=== PATIENT | male | born 1970 | race Two or more races ===

== ENCOUNTER 2020-11-14 16:06 | Inpatient (IN) | payer OTHER ==
[~2020-11-14] VITALS: Ht 188 cm; Wt 144.3 kg
[2020-11-14 18:27] VITALS: BP 122/88
[2020-11-14 21:59] VITALS: BP 127/80
[2020-11-14] MEDS ORDERED: LABETALOL 5MG/ML, 20ML IVPush PRN (22:00)
[2020-11-14] MEDS ORDERED: ACETAMINOPHEN 325 MG TABLET PO PRN (22:00)
[2020-11-14] MEDS ORDERED: ONDANSETRON 2MG/ML, 2ML IVPush PRN (22:00)
[2020-11-14] MEDS ORDERED: morphine SULFATE 10 MG/ML, 1ML IV PRN (22:00)
[2020-11-14] MEDS ORDERED: HEPARIN 5,000 UNITS/ML, 1ML IV ONE (22:30)
[2020-11-14] MEDS: PLEASE ENTER HEIGHT AND WEIGHT MC SCH (22:51)
[2020-11-14] MEDS: FUROSEMIDE 20 MG/2 ML IV SCH (23:28)
[2020-11-14] MEDS: DIAZEPAM 5 MG TABLET PO PRN (23:28)
[2020-11-14] MEDS: HEPARIN 25,000 UNITS/250ML PMX 250 ML IV PRN (23:49)
[2020-11-15 04:28] VITALS: BP 103/70
[2020-11-15] MEDS: PLEASE ENTER HEIGHT AND WEIGHT MC SCH ×2 (06:07→14:00)
[2020-11-15 06:10] LABS: BASOPHILS % (AUTO) 1 % (0-1); EOSINOPHILS % (AUTO) 2 % (1-7); LYMPHOCYTES % (AUTO) 24 % (22-44); MD NO; MEAN CORPUSCULAR HEMOGLOBIN 29.5 pg (27.5-34.5); MEAN CORPUSCULAR HGB CONC 33.6 g/dL (33.2-36.2); MEAN PLATELET VOLUME 7.5 fL (7.4-10.4); MONOCYTES % (AUTO) 8 % (2-9); NEUTROPHILS % (AUTO) 65 % (42-75); PLATELET COUNT 264 x10^3/uL (130-400); RED BLOOD COUNT 5.68 x10^6/uL (4.38-5.82)
[2020-11-15 06:20] LABS: ALANINE AMINOTRANSFERASE 43 U/L (12-78); ALBUMIN 2.6 g/dL (3.4-5.0); ANION GAP 8 mmol/L (5-15); CALCIUM 7.9 mg/dL (8.5-10.1); CHLORIDE 103 mmol/L (98-107); CREATININE 0.81 mg/dL (0.7-1.3); INTERNATIONAL NORMALIZED RATIO 1.31 (0.93-1.1); PROTHROMBIN TIME 13.9 Seconds (9.6-11.5)
[2020-11-15] MEDS: CARVEDILOL 25 MG TABLET PO SCH ×2 (06:22→17:35)
[2020-11-15 06:23] LABS: ALKALINE PHOSPHATASE 77 U/L (45-117); BILIRUBIN,TOTAL 0.7 mg/dL (0.2-1.0); TOTAL PROTEIN 6.1 g/dL (6.4-8.2)
[2020-11-15 06:38] VITALS: BP 100/66
[2020-11-15] MEDS: HEPARIN 5,000 UNITS/ML, 1ML IV PRN ×3 (06:51→22:01)
[2020-11-15] MEDS: INSULIN LISPRO 100 UNITS/ML, PEN SQ-INSULIN SCH ×4 (07:00→21:40)
[2020-11-15] MEDS: DIAZEPAM 5 MG TABLET PO PRN ×3 (08:20→21:36)
[2020-11-15] MEDS: FUROSEMIDE 20 MG/2 ML IV SCH ×2 (08:20→17:34)
[2020-11-15] MEDS: DIGOXIN 0.25 MG TABLET PO SCH (08:20)
[2020-11-15] MEDS: POTASSIUM CHLORIDE 20 MEQ TAB.ER.PRT PO SCH (08:20)
[2020-11-15] MEDS: SENNA/DOCUSATE TABLET PO SCH (08:28)
[2020-11-15] MEDS ORDERED: NITROGLYCERIN 0.4 MG BOTTLE (25 TABS) SL PRN (08:30)
[2020-11-15] MEDS ORDERED: ACETAMINOPHEN 325 MG TABLET PO PRN (08:30)
[2020-11-15] MEDS ORDERED: LISINOPRIL 5 MG TABLET PO SCH (09:00)
[2020-11-15 12:43] VITALS: BP 111/77
[2020-11-15] MEDS ORDERED: INSULIN LISPRO 100 UNITS/ML, PEN SQ-INSULIN SCH (16:00)
[2020-11-15 17:39] VITALS: BP 128/80
[2020-11-15 18:30] VITALS: BP 114/73
[2020-11-15] MEDS: HEPARIN 25,000 UNITS/250ML PMX 250 ML IV PRN (18:54)
[2020-11-16] VITALS (7 sets, daily range): BP systolic 93–120; BP diastolic 68–78
[2020-11-16] MEDS: DIAZEPAM 5 MG TABLET PO PRN ×3 (04:57→20:32)
[2020-11-16] MEDS: CARVEDILOL 25 MG TABLET PO SCH ×2 (06:54→18:30)
[2020-11-16] MEDS: INSULIN LISPRO 100 UNITS/ML, PEN SQ-INSULIN SCH ×4 (07:39→20:37)
[2020-11-16] MEDS: FUROSEMIDE 20 MG/2 ML IV SCH ×2 (08:04→16:48)
[2020-11-16] MEDS: POTASSIUM CHLORIDE 20 MEQ TAB.ER.PRT PO SCH (08:05)
[2020-11-16] MEDS: SENNA/DOCUSATE TABLET PO SCH (08:05)
[2020-11-16] MEDS: DIGOXIN 0.25 MG TABLET PO SCH (08:05)
[2020-11-16] MEDS ORDERED: SENNA/DOCUSATE TABLET PO PRN (08:30)
[2020-11-16] MEDS: HEPARIN 25,000 UNITS/250ML PMX 250 ML IV PRN (09:55)
[2020-11-16] MEDS ORDERED: PHARMACY INSTRUCTION MC ONE (14:00)
[2020-11-16 14:24] LABS: BASOPHILS % (AUTO) 1 % (0-1); EOSINOPHILS % (AUTO) 2 % (1-7); LYMPHOCYTES % (AUTO) 24 % (22-44); MEAN CORPUSCULAR HEMOGLOBIN 29.4 pg (27.5-34.5); MEAN CORPUSCULAR HGB CONC 33.1 g/dL (33.2-36.2); MEAN PLATELET VOLUME 7.5 fL (7.4-10.4); MONOCYTES % (AUTO) 8 % (2-9); NEUTROPHILS % (AUTO) 65 % (42-75); PLATELET COUNT 317 x10^3/uL (130-400); RED BLOOD COUNT 5.62 x10^6/uL (4.38-5.82); RED CELL DISTRIBUTION WIDTH 15.9 % (9.4-14.8)
[2020-11-16 14:25] LABS: MD NO
[2020-11-16 14:31] LABS: ALANINE AMINOTRANSFERASE 48 U/L (12-78); ALBUMIN 2.9 g/dL (3.4-5.0); ANION GAP 8 mmol/L (5-15); CALCIUM 8.6 mg/dL (8.5-10.1); CHLORIDE 104 mmol/L (98-107); CREATININE 1.08 mg/dL (0.7-1.3); INTERNATIONAL NORMALIZED RATIO 1.13 (0.93-1.1); PROTHROMBIN TIME 12.1 Seconds (9.6-11.5)
[2020-11-16 14:33] LABS: ALKALINE PHOSPHATASE 81 U/L (45-117); BILIRUBIN,TOTAL 0.8 mg/dL (0.2-1.0); TOTAL PROTEIN 6.7 g/dL (6.4-8.2)
[2020-11-16 18:28] LABS: MICROSCOPIC NOT IND
[2020-11-16] MEDS: SODIUM CHLORIDE FLUSH 10ML SYR IVF SCH (20:34)
[2020-11-16] MEDS ORDERED: ATORVASTATIN 40 MG TABLET PO SCH (21:00)
[2020-11-16] MEDS ORDERED: CHLORHEXIDINE 15 ML UDC MM ONE (22:00)
[2020-11-17] MEDS: HEPARIN 25,000 UNITS/250ML PMX 250 ML IV PRN (00:41)
[2020-11-17] MEDS: DIAZEPAM 5 MG TABLET PO PRN (00:44)
[2020-11-17] MEDS ORDERED: INSULIN LISPRO 100 UNITS/ML, PEN SQ-INSULIN ONE (05:00)
[2020-11-17 05:24] VITALS: BP_SYST 114; BP_SYST 116; BP_DIAS 81
[2020-11-17] MEDS: CARVEDILOL 25 MG TABLET PO SCH (05:32)
[2020-11-17] MEDS: INSULIN LISPRO 100 UNITS/ML, PEN SQ-INSULIN SCH ×4 (07:00→23:30)
[2020-11-17 07:18] VITALS: BP_SYST 94; BP_SYST 98; BP_DIAS 66; BP_DIAS 67
[2020-11-17] MEDS ORDERED: PHENYLEPHRINE 50 MG in SODIUM CHLORIDE 0.9% 245 ML IV PRN ×2 (07:30→19:30)
[2020-11-17] MEDS ORDERED: REGULAR INSULIN 100 UNITS in SODIUM CHLORIDE 0.9% 99 ML IV PRN ×2 (07:30→19:30)
[2020-11-17] MEDS ORDERED: MANNITOL PMX 20% 500 ML IVPB PRN (07:30)
[2020-11-17] MEDS ORDERED: ALBUMIN HUMAN 5% 500 ML IV PRN ×2 (07:30→19:30)
[2020-11-17] MEDS ORDERED: EPINEPHRINE 5 MG in SODIUM CHLORIDE 0.9% 245 ML IV PRN (07:30)
[2020-11-17] MEDS ORDERED: POTASSIUM CHLORIDE 80 MEQ, SODIUM BICARBONATE 8.4% 10 MEQ, MAGNESIUM SULFATE 0.5 GM, LI... IV PRN (07:30)
[2020-11-17] MEDS ORDERED: DEXMEDETOMIDINE 200 MCG in SODIUM CHLORIDE 0.9% 48 ML IV PRN (07:30)
[2020-11-17] MEDS ORDERED: VANCOMYCIN 2,000 MG in SODIUM CHLORIDE 0.9% 500 ML IVPB ONE (07:30)
[2020-11-17] MEDS ORDERED: CEFUROXIME 1.5 GM in SODIUM CHLORIDE 0.9% 50 ML IVPB ONE (07:30)
[2020-11-17 08:12] VITALS: BP_SYST 115; BP_SYST 118; BP_DIAS 75
[2020-11-17] MEDS: POTASSIUM CHLORIDE 20 MEQ TAB.ER.PRT PO SCH (08:17)
[2020-11-17] MEDS: DIGOXIN 0.25 MG TABLET PO SCH (08:17)
[2020-11-17] MEDS: FUROSEMIDE 20 MG/2 ML IV SCH (08:17)
[2020-11-17] MEDS: SODIUM CHLORIDE FLUSH 10ML SYR IVF SCH ×2 (08:18→21:00)
[2020-11-17] MEDS ORDERED: PAPAVERINE 30 MG/ML, 2ML ONE (09:47)
[2020-11-17] MEDS ORDERED: HEPARIN 1,000 UNITS/ML, 10ML ONE (09:47)
[2020-11-17] MEDS ORDERED: MAGNESIUM SULFATE PMX 2GM/50ML 50 ML ONE (10:57)
[2020-11-17] MEDS ORDERED: MIDAZOLAM 10MG/2 ML ONE (11:58)
[2020-11-17] MEDS ORDERED: FENTANYL PF 250 MCG/5ML ONE ×4 (12:01→16:56)
[2020-11-17] MEDS ORDERED: HEPARIN 1,000 UNITS/ML, 10ML IV ONE (12:43)
[2020-11-17] MEDS ORDERED: PAPAVERINE 30 MG/ML, 2ML IV ONE (12:43)
[2020-11-17] MEDS ORDERED: CALCIUM CHLORIDE 10%, 10ML SYR ONE ×2 (16:56→19:52)
[2020-11-17] MEDS ORDERED: AMIODARONE 50 MG/ML, 3ML ONE (16:56)
[2020-11-17] MEDS ORDERED: AMINOCAPROIC ACID 250 MG/ML, 20ML ONE ×3 (17:29)
[2020-11-17] MEDS ORDERED: PROTAMINE SULFATE 10 MG/ML, 25ML ONE ×3 (17:30→18:15)
[2020-11-17] MEDS ORDERED: HEPARIN 1,000 UNITS/ML, 30ML ONE ×2 (18:15→19:52)
[2020-11-17] MEDS ORDERED: ROCURONIUM 10MG/ML,5ML ONE ×3 (18:59)
[2020-11-17] MEDS ORDERED: PROPOFOL 10 MG/ML, 20ML ONE (18:59)
[2020-11-17] MEDS ORDERED: ONDANSETRON 2MG/ML, 2ML IVPush PRN (19:30)
[2020-11-17] MEDS ORDERED: DEXTROSE 4 GM TAB.CHEW PO PRN (19:30)
[2020-11-17] MEDS ORDERED: VASOPRESSIN 20 UNIT in SODIUM CHLORIDE 0.9% 99 ML IV PRN (19:30)
[2020-11-17] MEDS ORDERED: FENTANYL PF 100 MCG/2ML IV PRN (19:30)
[2020-11-17] MEDS ORDERED: GLUCAGON 1 MG IM PRN (19:30)
[2020-11-17] MEDS ORDERED: DEXTROSE 50%, 50ML SYRINGE IVPush PRN (19:30)
[2020-11-17] MEDS ORDERED: SODIUM BICARB 8.4%, 50ML SYRINGE IV PRN (19:30)
[2020-11-17] MEDS ORDERED: LACTATED RINGERS 500 ML IV PRN (19:30)
[2020-11-17] MEDS ORDERED: DEXMEDETOMIDINE 400 MCG in SODIUM CHLORIDE 0.9% 96 ML IV PRN (19:30)
[2020-11-17] MEDS ORDERED: NITROGLYCERIN/D5W PMX 250 ML IV PRN (19:30)
[2020-11-17] MEDS ORDERED: PROMETHAZINE 25 MG SUPP PR PRN (19:30)
[2020-11-17] MEDS ORDERED: SODIUM CHLORIDE 0.9% 1,000 ML IV SCH (19:30)
[2020-11-17] MEDS ORDERED: INSULIN REGULAR 100 UNITS/ML, 3ML VIAL IVPush PRN (19:30)
[2020-11-17] MEDS ORDERED: CALCIUM CHLORIDE 13.6 MEQ in SODIUM CHLORIDE 0.9% 100 ML IVPB PRN (19:30)
[2020-11-17] MEDS ORDERED: MIDAZOLAM 1 MG/ML, 2ML IV PRN (19:30)
[2020-11-17] MEDS ORDERED: HYDROmorphone 1 MG/ML, 1ML INJ IV PRN (19:30)
[2020-11-17] MEDS ORDERED: OXYcodone IR 5MG TABLET PO PRN ×2 (19:30)
[2020-11-17] MEDS ORDERED: LIDOCAINE 2%, 20ML ONE (19:52)
[2020-11-17] MEDS ORDERED: MANNITOL 0.25 GM/ML, 50ML ONE (19:53)
[2020-11-17] MEDS ORDERED: ALBUMIN HUMAN 25% 50 ML ONE ×2 (19:53→19:54)
[2020-11-17] MEDS ORDERED: SODIUM BICARBONATE 1 MEQ/ML, 50ML VIAL ONE (19:54)
[2020-11-17] MEDS: ACETAMINOPHEN 500 MG TABLET PO SCH (20:00)
[2020-11-17] MEDS: KSCALE TO 4.5 IV SCH (20:00)
[2020-11-17] MEDS: MAGNESIUM SULFATE 1 GM in SODIUM CHLORIDE 0.9% 100 ML IVPB SCH (20:11)
[2020-11-17 20:15] LABS: GLUCOSE BY BLOOD GAS ANALYZER 160 mg/dL (70-110); HEMOGLOBIN BY BLOOD GAS ANALYZ 13.8 g/dL (14.0-18.0); POTASSIUM BY BLOOD GAS ANALYZR 4.8 mmol/L (3.6-5.5)
[2020-11-17] MEDS: EPINEPHRINE 5 MG in SODIUM CHLORIDE 0.9% 245 ML IV PRN (20:42)
[2020-11-17] MEDS: SENNA/DOCUSATE TABLET PO SCH (21:00)
[2020-11-17] MEDS: ATORVASTATIN 40 MG TABLET PO SCH (21:00)
[2020-11-17] MEDS: DOCUSATE 100 MG CAPSULE PO SCH (21:00)
[2020-11-17] MEDS ORDERED: DIPHENHYDRAMINE 25 MG CAPSULE PO PRN (21:00)
[2020-11-17 21:28] LABS: INTERNATIONAL NORMALIZED RATIO 1.13 (0.93-1.1); PROTHROMBIN TIME 12.1 Seconds (9.6-11.5)
[2020-11-17] MEDS: morphine SULFATE 10 MG/ML, 1ML IVPush PRN (22:37)
[2020-11-17] MEDS: MUPIROCIN OINT 2%, 22GM NAS SCH (23:38)
[2020-11-18] MEDS: CEFUROXIME 1.5 GM in SODIUM CHLORIDE 0.9% 50 ML IVPB SCH ×2 (00:29→11:53)
[2020-11-18] MEDS: VANCOMYCIN 2,100 MG in SODIUM CHLORIDE 0.9% 500 ML IVPB SCH ×2 (00:57→11:53)
[2020-11-18] MEDS: EPINEPHRINE 5 MG in SODIUM CHLORIDE 0.9% 245 ML IV PRN ×5 (00:57→17:36)
[2020-11-18] MEDS: KSCALE TO 4.5 IV SCH ×3 (02:00→14:00)
[2020-11-18] MEDS: ACETAMINOPHEN 500 MG TABLET PO SCH ×5 (02:00→23:30)
[2020-11-18] MEDS: INSULIN LISPRO 100 UNITS/ML, PEN SQ-INSULIN SCH ×6 (03:01→23:27)
[2020-11-18] MEDS ORDERED: DEXTROSE 50%, 50ML SYRINGE IVPush ONE (03:30)
[2020-11-18] MEDS ORDERED: INSULIN REGULAR 100 UNITS/ML, 3ML VIAL IVPush ONE (03:30)
[2020-11-18 05:00] LABS: MEAN CORPUSCULAR HEMOGLOBIN 29.4 pg (27.5-34.5); MEAN CORPUSCULAR HGB CONC 33.3 g/dL (33.2-36.2); MEAN PLATELET VOLUME 7.9 fL (7.4-10.4); PLATELET COUNT 366 x10^3/uL (130-400); RED CELL DISTRIBUTION WIDTH 15.6 % (9.4-14.8)
[2020-11-18 05:12] LABS: ANION GAP 7 mmol/L (5-15); CALCIUM 7.8 mg/dL (8.5-10.1); CHLORIDE 110 mmol/L (98-107)
[2020-11-18 05:14] LABS: CREATININE 1.79 mg/dL (0.7-1.3)
[2020-11-18 05:36] LABS: MD YES
[2020-11-18] MEDS: DEXMEDETOMIDINE 1,000 MCG in SODIUM CHLORIDE 0.9% 240 ML IV PRN ×2 (05:37→14:58)
[2020-11-18 05:38] LABS: BAND#(MANUAL) 0.92 x10^3/uL; BANDS%(MANUAL) 4 % (0-7); LYMPH#(MANUAL) 1.15 x10^3/uL (1-3.4); LYMPHS% (MANUAL) 5 % (22-44); MONOS#(MANUAL) 1.15 x10^3/uL (0.3-2.7); MONOS% (MANUAL) 5 % (2-9); MYELOCYTES# (MANUAL) 0.23 x10^3/uL (0-0); MYELOCYTES% (MANUAL) 1 % (0-0); SEG#(MANUAL) 19.47 x10^3/uL (1.8-6.8); SEGS% (MANUAL) 85 % (42-75)
[2020-11-18 05:39] LABS: ANISOCYTOSIS 1+; POLYCHROMASIA 1+
[2020-11-18 05:40] LABS: <PLATELET ESTIMATE> ADEQUATE; <PLT MORPHOLOGY> NORMAL PLT MORPH
[2020-11-18] MEDS: OMEPRAZOLE 20 MG CAPSULE.DR PO SCH (07:24)
[2020-11-18] MEDS: CLOPIDOGREL 75 MG TABLET PO SCH (09:00)
[2020-11-18] MEDS: DOCUSATE 100 MG CAPSULE PO SCH ×2 (09:00→21:47)
[2020-11-18] MEDS: SENNA/DOCUSATE TABLET PO SCH ×2 (09:00→21:51)
[2020-11-18] MEDS: METOPROLOL TARTRATE 25 MG TAB PO/NG SCH ×2 (09:00→21:00)
[2020-11-18] MEDS: CHLORHEXIDINE 15 ML UDC MM SCH ×2 (09:00→21:51)
[2020-11-18] MEDS: ASPIRIN 81 MG TABLET EC PO SCH (09:00)
[2020-11-18] MEDS: POLYETHYLENE GLYCOL 17 GM PACKET PO SCH (09:00)
[2020-11-18] MEDS: DOBUTAMINE 250 MG in SODIUM CHLORIDE 0.9% 230 ML IV PRN ×2 (10:25→17:36)
[2020-11-18] MEDS: MUPIROCIN OINT 2%, 22GM NAS SCH ×2 (10:32→21:00)
[2020-11-18] MEDS: SODIUM CHLORIDE FLUSH 10ML SYR IVF SCH ×2 (10:33→21:54)
[2020-11-18] MEDS: morphine SULFATE 10 MG/ML, 1ML IVPush PRN ×2 (11:50→14:41)
[2020-11-18] MEDS: MAGNESIUM SULFATE 1 GM in SODIUM CHLORIDE 0.9% 100 ML IVPB SCH (21:09)
[2020-11-18] MEDS: OXYcodone IR 5MG TABLET PO PRN (21:18)
[2020-11-18] MEDS: ATORVASTATIN 40 MG TABLET PO SCH (21:48)
[2020-11-19] MEDS: DOBUTAMINE 250 MG in SODIUM CHLORIDE 0.9% 230 ML IV PRN (00:29)
[2020-11-19] MEDS: EPINEPHRINE 5 MG in SODIUM CHLORIDE 0.9% 245 ML IV PRN (00:29)
[2020-11-19] MEDS: OXYcodone IR 5MG TABLET PO PRN ×3 (03:17→18:05)
[2020-11-19] MEDS: INSULIN LISPRO 100 UNITS/ML, PEN SQ-INSULIN SCH ×6 (03:30→23:30)
[2020-11-19 03:50] LABS: BASOPHILS % (AUTO) 1 % (0-1); EOSINOPHILS % (AUTO) 0 % (1-7); LYMPHOCYTES % (AUTO) 6 % (22-44); MEAN CORPUSCULAR HEMOGLOBIN 29.1 pg (27.5-34.5); MEAN CORPUSCULAR HGB CONC 32.9 g/dL (33.2-36.2); MEAN PLATELET VOLUME 7.8 fL (7.4-10.4); MONOCYTES % (AUTO) 8 % (2-9); NEUTROPHILS % (AUTO) 85 % (42-75); PLATELET COUNT 220 x10^3/uL (130-400); RED BLOOD COUNT 4.27 x10^6/uL (4.38-5.82)
[2020-11-19 03:51] LABS: MD NO
[2020-11-19 04:02] LABS: ANION GAP 5 mmol/L (5-15); CALCIUM 7.3 mg/dL (8.5-10.1); CHLORIDE 110 mmol/L (98-107); CREATININE 1.16 mg/dL (0.7-1.3)
[2020-11-19] MEDS: ACETAMINOPHEN 500 MG TABLET PO SCH ×5 (05:30→23:30)
[2020-11-19] MEDS ORDERED: FUROSEMIDE 40 MG/4 ML IV ONE (08:30)
[2020-11-19] MEDS: OMEPRAZOLE 20 MG CAPSULE.DR PO SCH (08:53)
[2020-11-19] MEDS: CLOPIDOGREL 75 MG TABLET PO SCH (08:54)
[2020-11-19] MEDS: ASPIRIN 81 MG TABLET EC PO SCH (08:54)
[2020-11-19] MEDS: CHLORHEXIDINE 15 ML UDC MM SCH ×2 (08:55→20:30)
[2020-11-19] MEDS: DOCUSATE 100 MG CAPSULE PO SCH ×2 (08:55→20:30)
[2020-11-19] MEDS: SODIUM CHLORIDE FLUSH 10ML SYR IVF SCH ×2 (08:55→20:31)
[2020-11-19] MEDS: SENNA/DOCUSATE TABLET PO SCH ×2 (09:00→20:30)
[2020-11-19] MEDS: POLYETHYLENE GLYCOL 17 GM PACKET PO SCH (09:00)
[2020-11-19] MEDS: MUPIROCIN OINT 2%, 22GM NAS SCH ×2 (09:10→21:00)
[2020-11-19] MEDS ORDERED: BISACODYL 10 MG SUPP PR PRN (19:30)
[2020-11-19] MEDS: MAGNESIUM SULFATE 1 GM in SODIUM CHLORIDE 0.9% 100 ML IVPB SCH (19:46)
[2020-11-19] MEDS: ATORVASTATIN 40 MG TABLET PO SCH (20:30)
[2020-11-20] MEDS: INSULIN LISPRO 100 UNITS/ML, PEN SQ-INSULIN SCH ×5 (03:30→21:50)
[2020-11-20] MEDS: ACETAMINOPHEN 500 MG TABLET PO SCH ×4 (06:14→23:09)
[2020-11-20] MEDS: OMEPRAZOLE 20 MG CAPSULE.DR PO SCH (07:46)
[2020-11-20] MEDS: ASPIRIN 81 MG TABLET EC PO SCH (07:46)
[2020-11-20] MEDS: POLYETHYLENE GLYCOL 17 GM PACKET PO SCH (07:46)
[2020-11-20] MEDS: SENNA/DOCUSATE TABLET PO SCH ×3 (07:46→21:52)
[2020-11-20] MEDS: DOCUSATE 100 MG CAPSULE PO SCH ×3 (07:46→21:52)
[2020-11-20] MEDS: CLOPIDOGREL 75 MG TABLET PO SCH (07:46)
[2020-11-20] MEDS: MUPIROCIN OINT 2%, 22GM NAS SCH ×2 (07:47→20:50)
[2020-11-20] MEDS: SODIUM CHLORIDE FLUSH 10ML SYR IVF SCH ×2 (07:47→20:50)
[2020-11-20 07:50] LABS: BASOPHILS % (AUTO) 0 % (0-1); EOSINOPHILS % (AUTO) 1 % (1-7); LYMPHOCYTES % (AUTO) 10 % (22-44); MEAN CORPUSCULAR HGB CONC 32.5 g/dL (33.2-36.2); MEAN PLATELET VOLUME 8.1 fL (7.4-10.4); MONOCYTES % (AUTO) 9 % (2-9); NEUTROPHILS % (AUTO) 80 % (42-75); PLATELET COUNT 210 x10^3/uL (130-400); RED BLOOD COUNT 4.18 x10^6/uL (4.38-5.82); RED CELL DISTRIBUTION WIDTH 15.9 % (9.4-14.8)
[2020-11-20 07:54] LABS: MD NO
[2020-11-20 08:07] LABS: ANION GAP 6 mmol/L (5-15); CALCIUM 8.1 mg/dL (8.5-10.1); CHLORIDE 104 mmol/L (98-107)
[2020-11-20 08:08] LABS: CREATININE 0.92 mg/dL (0.7-1.3)
[2020-11-20] MEDS ORDERED: POTASSIUM CHLORIDE 10 MEQ TABLET.ER PO SCH (08:30)
[2020-11-20] MEDS: METOPROLOL TARTRATE 25 MG TAB PO SCH ×2 (08:46→17:29)
[2020-11-20] MEDS ORDERED: FUROSEMIDE 40 MG/4 ML IV SCH (09:00)
[2020-11-20] MEDS: OXYcodone IR 5MG TABLET PO PRN (11:25)
[2020-11-20 14:30] VITALS: BP 127/67
[2020-11-20 20:38] VITALS: BP 136/82
[2020-11-20] MEDS: ATORVASTATIN 40 MG TABLET PO SCH (20:50)
[2020-11-21] VITALS (7 sets, daily range): BP systolic 96–134; BP diastolic 60–86
[2020-11-21] MEDS: METOPROLOL TARTRATE 25 MG TAB PO SCH ×2 (05:18→18:19)
[2020-11-21] MEDS: ACETAMINOPHEN 500 MG TABLET PO SCH ×3 (05:18→17:03)
[2020-11-21 05:52] LABS: MEAN CORPUSCULAR HEMOGLOBIN 29.4 pg (27.5-34.5); MEAN CORPUSCULAR HGB CONC 32.6 g/dL (33.2-36.2); MEAN PLATELET VOLUME 8.3 fL (7.4-10.4); PLATELET COUNT 225 x10^3/uL (130-400); RED CELL DISTRIBUTION WIDTH 15.7 % (9.4-14.8)
[2020-11-21 06:08] LABS: CHLORIDE 103 mmol/L (98-107)
[2020-11-21 06:15] LABS: ANION GAP 7 mmol/L (5-15); CALCIUM 8.2 mg/dL (8.5-10.1); CREATININE 0.89 mg/dL (0.7-1.3)
[2020-11-21 06:50] LABS: MD YES
[2020-11-21] MEDS: INSULIN LISPRO 100 UNITS/ML, PEN SQ-INSULIN SCH ×4 (07:00→21:30)
[2020-11-21 07:12] LABS: ANISOCYTOSIS 1+; EOS#(MANUAL) 0.35 x10^3/uL (0.0-0.4); EOS% (MANUAL) 2 % (1-7); LYMPH#(MANUAL) 1.75 x10^3/uL (1-3.4); LYMPHS% (MANUAL) 10 % (22-44); MONOS#(MANUAL) 1.05 x10^3/uL (0.3-2.7); MONOS% (MANUAL) 6 % (2-9); SEG#(MANUAL) 14.35 x10^3/uL (1.8-6.8); SEGS% (MANUAL) 82 % (42-75)
[2020-11-21 07:13] LABS: <PLATELET ESTIMATE> ADEQUATE; LARGE PLATELETS 1+; POLYCHROMASIA 1+
[2020-11-21] MEDS ORDERED: METOLAZONE 2.5 MG TABLET PO ONE (08:00)
[2020-11-21 08:26] LABS: MICROSCOPIC INDICATED
[2020-11-21] MEDS: DOCUSATE 100 MG CAPSULE PO SCH ×2 (08:50→21:05)
[2020-11-21] MEDS: POTASSIUM CHLORIDE 20 MEQ TAB.ER.PRT PO SCH ×3 (08:51→21:05)
[2020-11-21] MEDS: LOSARTAN 50MG TABLET PO SCH (08:51)
[2020-11-21] MEDS: SENNA/DOCUSATE TABLET PO SCH ×2 (08:51→21:06)
[2020-11-21] MEDS: ASPIRIN 81 MG TABLET EC PO SCH (08:51)
[2020-11-21] MEDS: CLOPIDOGREL 75 MG TABLET PO SCH (08:51)
[2020-11-21] MEDS: OMEPRAZOLE 20 MG CAPSULE.DR PO SCH (08:51)
[2020-11-21] MEDS: FUROSEMIDE 40 MG/4 ML IV SCH ×3 (08:52→21:05)
[2020-11-21] MEDS: POLYETHYLENE GLYCOL 17 GM PACKET PO SCH (08:52)
[2020-11-21] MEDS: SODIUM CHLORIDE FLUSH 10ML SYR IVF SCH ×2 (08:52→21:07)
[2020-11-21] MEDS: MUPIROCIN OINT 2%, 22GM NAS SCH ×2 (08:53→21:29)
[2020-11-21] MEDS: OXYcodone IR 5MG TABLET PO PRN (17:03)
[2020-11-21] MEDS: ATORVASTATIN 40 MG TABLET PO SCH (21:06)
[2020-11-22] MEDS: ACETAMINOPHEN 500 MG TABLET PO SCH ×3 (00:27→11:10)
[2020-11-22 00:32] VITALS: BP 119/78
[2020-11-22] MEDS ORDERED: AMIODARONE 150 MG in DEXTROSE 5% 100 ML IV ONE (01:30)
[2020-11-22] MEDS ORDERED: FILTER 0.22 MICRON IV PRN (01:30)
[2020-11-22] MEDS ORDERED: AMIODARONE 450 MG in DEXTROSE 5% 241 ML IV PRN (01:30)
[2020-11-22 05:53] LABS: ANION GAP 7 mmol/L (5-15); CALCIUM 7.8 mg/dL (8.5-10.1); CHLORIDE 104 mmol/L (98-107); CREATININE 0.65 mg/dL (0.7-1.3)
[2020-11-22] MEDS: OXYcodone IR 5MG TABLET PO PRN ×2 (05:55→14:41)
[2020-11-22] MEDS: METOPROLOL TARTRATE 25 MG TAB PO SCH ×2 (05:55→17:17)
[2020-11-22 06:31] LABS: BASOPHILS % (AUTO) 1 % (0-1); EOSINOPHILS % (AUTO) 3 % (1-7); LYMPHOCYTES % (AUTO) 12 % (22-44); MEAN CORPUSCULAR HEMOGLOBIN 29.1 pg (27.5-34.5); MEAN CORPUSCULAR HGB CONC 32.8 g/dL (33.2-36.2); MEAN PLATELET VOLUME 7.9 fL (7.4-10.4); MONOCYTES % (AUTO) 9 % (2-9); NEUTROPHILS % (AUTO) 76 % (42-75); PLATELET COUNT 286 x10^3/uL (130-400); RED BLOOD COUNT 4.24 x10^6/uL (4.38-5.82); RED CELL DISTRIBUTION WIDTH 15.5 % (9.4-14.8)
[2020-11-22 06:32] LABS: MD NO
[2020-11-22 06:58] VITALS: BP 103/68
[2020-11-22] MEDS: INSULIN LISPRO 100 UNITS/ML, PEN SQ-INSULIN SCH ×4 (07:00→20:21)
[2020-11-22] MEDS ORDERED: METOLAZONE 2.5 MG TABLET PO ONE (09:00)
[2020-11-22] MEDS: SENNA/DOCUSATE TABLET PO SCH ×2 (09:08→20:16)
[2020-11-22] MEDS: ASPIRIN 81 MG TABLET EC PO SCH (09:09)
[2020-11-22] MEDS: LOSARTAN 50MG TABLET PO SCH (09:10)
[2020-11-22] MEDS: POTASSIUM CHLORIDE 20 MEQ TAB.ER.PRT PO SCH ×2 (09:10→20:16)
[2020-11-22] MEDS: CLOPIDOGREL 75 MG TABLET PO SCH (09:11)
[2020-11-22] MEDS: DOCUSATE 100 MG CAPSULE PO SCH ×2 (09:11→20:24)
[2020-11-22] MEDS: OMEPRAZOLE 20 MG CAPSULE.DR PO SCH (09:12)
[2020-11-22] MEDS: POLYETHYLENE GLYCOL 17 GM PACKET PO SCH (09:12)
[2020-11-22] MEDS: MUPIROCIN OINT 2%, 22GM NAS SCH (09:13)
[2020-11-22] MEDS: SODIUM CHLORIDE FLUSH 10ML SYR IVF SCH ×2 (09:14→20:18)
[2020-11-22] MEDS: FUROSEMIDE 40 MG/4 ML IV SCH ×2 (09:15→20:17)
[2020-11-22 09:18] VITALS: BP 119/80
[2020-11-22] MEDS: AMIODARONE 200 MG TABLET PO SCH ×2 (11:10→20:17)
[2020-11-22] MEDS ORDERED: MAGNESIUM HYDROXIDE 8%, 30ML UDC PO PRN (11:30)
[2020-11-22] MEDS ORDERED: MAGNESIUM CITRATE 300ML ORAL SOL PO PRN (11:30)
[2020-11-22 15:00] VITALS: BP 107/71
[2020-11-22] MEDS: metFORMIN 500 MG TABLET PO SCH (17:13)
[2020-11-22 17:17] VITALS: BP 111/73
[2020-11-22 20:10] VITALS: BP 113/73
[2020-11-22] MEDS: ATORVASTATIN 40 MG TABLET PO SCH (20:16)
[2020-11-23 00:32] VITALS: BP 127/85
[2020-11-23] MEDS: OXYcodone IR 5MG TABLET PO PRN ×3 (04:43→22:27)
[2020-11-23 05:17] LABS: BASOPHILS % (AUTO) 1 % (0-1); EOSINOPHILS % (AUTO) 2 % (1-7); LYMPHOCYTES % (AUTO) 14 % (22-44); MEAN CORPUSCULAR HEMOGLOBIN 29.1 pg (27.5-34.5); MEAN CORPUSCULAR HGB CONC 33.5 g/dL (33.2-36.2); MEAN PLATELET VOLUME 7.9 fL (7.4-10.4); MONOCYTES % (AUTO) 9 % (2-9); NEUTROPHILS % (AUTO) 74 % (42-75); PLATELET COUNT 305 x10^3/uL (130-400); RED CELL DISTRIBUTION WIDTH 15.4 % (9.4-14.8)
[2020-11-23 05:26] LABS: ANION GAP 5 mmol/L (5-15); CALCIUM 8.3 mg/dL (8.5-10.1); CHLORIDE 95 mmol/L (98-107)
[2020-11-23 05:28] LABS: CREATININE 0.85 mg/dL (0.7-1.3)
[2020-11-23 05:32] LABS: MD NO
[2020-11-23] MEDS: METOPROLOL TARTRATE 25 MG TAB PO SCH ×2 (06:12→17:23)
[2020-11-23 06:52] VITALS: BP 111/65
[2020-11-23] MEDS: INSULIN LISPRO 100 UNITS/ML, PEN SQ-INSULIN SCH ×4 (07:00→22:23)
[2020-11-23] MEDS ORDERED: LIDOCAINE 1%, 10ML ONE (08:12)
[2020-11-23] MEDS: METOLAZONE 2.5 MG TABLET PO SCH ×2 (08:31→16:35)
[2020-11-23] MEDS: DOCUSATE 100 MG CAPSULE PO SCH ×2 (08:31→21:00)
[2020-11-23] MEDS: POTASSIUM CHLORIDE 20 MEQ TAB.ER.PRT PO SCH ×2 (08:31→22:28)
[2020-11-23] MEDS: ASPIRIN 81 MG TABLET EC PO SCH (08:31)
[2020-11-23] MEDS: SENNA/DOCUSATE TABLET PO SCH ×2 (08:31→21:00)
[2020-11-23] MEDS: OMEPRAZOLE 20 MG CAPSULE.DR PO SCH (08:31)
[2020-11-23] MEDS: metFORMIN 500 MG TABLET PO SCH ×2 (08:32→16:35)
[2020-11-23] MEDS: DOXYCYCLINE 100MG TABLET PO SCH ×2 (08:32→22:26)
[2020-11-23] MEDS: AMIODARONE 200 MG TABLET PO SCH ×2 (08:32→22:26)
[2020-11-23] MEDS: CLOPIDOGREL 75 MG TABLET PO SCH (08:32)
[2020-11-23] MEDS: SODIUM CHLORIDE FLUSH 10ML SYR IVF SCH ×2 (08:32→22:23)
[2020-11-23] MEDS: LOSARTAN 50MG TABLET PO SCH (08:32)
[2020-11-23] MEDS: FUROSEMIDE 40 MG/4 ML IV SCH ×2 (08:32→22:24)
[2020-11-23] MEDS: POLYETHYLENE GLYCOL 17 GM PACKET PO SCH ×2 (08:33→10:59)
[2020-11-23] MEDS ORDERED: MAGNESIUM CITRATE 300ML ORAL SOL PO ONE (09:00)
[2020-11-23 12:20] VITALS: BP 108/67
[2020-11-23 19:14] VITALS: BP 101/68
[2020-11-23] MEDS: ATORVASTATIN 40 MG TABLET PO SCH (22:28)
[2020-11-23 23:55] VITALS: BP 124/77
[2020-11-24] MEDS: OXYcodone IR 5MG TABLET PO PRN ×4 (04:53→20:49)
[2020-11-24 05:54] LABS: BASOPHILS % (AUTO) 1 % (0-1); CHLORIDE 92 mmol/L (98-107); EOSINOPHILS % (AUTO) 3 % (1-7); LYMPHOCYTES % (AUTO) 14 % (22-44); MEAN CORPUSCULAR HEMOGLOBIN 29.2 pg (27.5-34.5); MEAN CORPUSCULAR HGB CONC 33.4 g/dL (33.2-36.2); MEAN PLATELET VOLUME 7.5 fL (7.4-10.4); MONOCYTES % (AUTO) 9 % (2-9); NEUTROPHILS % (AUTO) 73 % (42-75); PLATELET COUNT 364 x10^3/uL (130-400); RED BLOOD COUNT 4.01 x10^6/uL (4.38-5.82); RED CELL DISTRIBUTION WIDTH 15.5 % (9.4-14.8)
[2020-11-24 05:58] LABS: ANION GAP 5 mmol/L (5-15)
[2020-11-24 06:02] LABS: MD NO
[2020-11-24 06:30] VITALS: BP 104/69
[2020-11-24] MEDS: METOLAZONE 2.5 MG TABLET PO SCH ×2 (06:34→17:29)
[2020-11-24] MEDS: OMEPRAZOLE 20 MG CAPSULE.DR PO SCH (06:34)
[2020-11-24] MEDS: METOPROLOL TARTRATE 25 MG TAB PO SCH ×2 (06:34→17:29)
[2020-11-24 07:10] VITALS: BP 103/69
[2020-11-24] MEDS: INSULIN LISPRO 100 UNITS/ML, PEN SQ-INSULIN SCH ×4 (08:15→21:08)
[2020-11-24 08:20] VITALS: BP 117/74
[2020-11-24] MEDS: FUROSEMIDE 40 MG/4 ML IV SCH ×2 (08:28→20:47)
[2020-11-24] MEDS: DOCUSATE 100 MG CAPSULE PO SCH ×2 (08:28→21:00)
[2020-11-24] MEDS: ASPIRIN 81 MG TABLET EC PO SCH (08:28)
[2020-11-24] MEDS: metFORMIN 500 MG TABLET PO SCH ×2 (08:28→17:28)
[2020-11-24] MEDS: DOXYCYCLINE 100MG TABLET PO SCH ×2 (08:28→20:48)
[2020-11-24] MEDS: CLOPIDOGREL 75 MG TABLET PO SCH (08:28)
[2020-11-24] MEDS: SODIUM CHLORIDE FLUSH 10ML SYR IVF SCH ×2 (08:29→20:49)
[2020-11-24] MEDS: LOSARTAN 50MG TABLET PO SCH (08:29)
[2020-11-24] MEDS: SENNA/DOCUSATE TABLET PO SCH ×2 (08:29→20:48)
[2020-11-24] MEDS: POTASSIUM CHLORIDE 20 MEQ TAB.ER.PRT PO SCH ×4 (08:29→20:48)
[2020-11-24] MEDS: AMIODARONE 200 MG TABLET PO SCH ×2 (08:29→20:48)
[2020-11-24] MEDS ORDERED: MAGNESIUM CITRATE 300ML ORAL SOL PO PRN (09:30)
[2020-11-24] MEDS ORDERED: POTASSIUM CHLORIDE 20 MEQ TAB.ER.PRT PO ONE (11:30)
[2020-11-24 12:30] VITALS: BP 100/67
[2020-11-24 20:16] VITALS: BP 98/62
[2020-11-24 20:46] VITALS: BP 96/61
[2020-11-24] MEDS: ATORVASTATIN 40 MG TABLET PO SCH (20:48)
[2020-11-24] MEDS: PROCHLORPERAZINE 5 MG/ML, 2ML IVPush PRN (22:18)
[2020-11-25 00:59] VITALS: BP 120/76
[2020-11-25 05:52] LABS: BASOPHILS % (AUTO) 1 % (0-1); EOSINOPHILS % (AUTO) 4 % (1-7); LYMPHOCYTES % (AUTO) 15 % (22-44); MEAN CORPUSCULAR HEMOGLOBIN 28.8 pg (27.5-34.5); MEAN CORPUSCULAR HGB CONC 33.4 g/dL (33.2-36.2); MEAN PLATELET VOLUME 7.5 fL (7.4-10.4); MONOCYTES % (AUTO) 8 % (2-9); NEUTROPHILS % (AUTO) 73 % (42-75); PLATELET COUNT 403 x10^3/uL (130-400); RED BLOOD COUNT 4.01 x10^6/uL (4.38-5.82); RED CELL DISTRIBUTION WIDTH 14.9 % (9.4-14.8)
[2020-11-25 05:55] LABS: MD NO
[2020-11-25 05:57] VITALS: BP 121/70
[2020-11-25] MEDS: METOPROLOL TARTRATE 25 MG TAB PO SCH (05:59)
[2020-11-25 06:03] LABS: ANION GAP 6 mmol/L (5-15); CALCIUM 8.2 mg/dL (8.5-10.1); CHLORIDE 95 mmol/L (98-107)
[2020-11-25 06:06] LABS: CREATININE 0.93 mg/dL (0.7-1.3)
[2020-11-25] MEDS: PROCHLORPERAZINE 5 MG/ML, 2ML IVPush PRN (06:40)
[2020-11-25 07:18] VITALS: BP 110/72
[2020-11-25] MEDS ORDERED: ONDANSETRON 2MG/ML, 2ML IVPush PRN (07:30)
[2020-11-25] MEDS: METOLAZONE 2.5 MG TABLET PO SCH (08:13)
[2020-11-25] MEDS: SENNA/DOCUSATE TABLET PO SCH (08:13)
[2020-11-25] MEDS: FUROSEMIDE 40 MG/4 ML IV SCH (08:13)
[2020-11-25] MEDS: CLOPIDOGREL 75 MG TABLET PO SCH (08:13)
[2020-11-25] MEDS: AMIODARONE 200 MG TABLET PO SCH (08:13)
[2020-11-25] MEDS: LOSARTAN 50MG TABLET PO SCH (08:14)
[2020-11-25] MEDS: DOCUSATE 100 MG CAPSULE PO SCH (08:14)
[2020-11-25] MEDS: metFORMIN 500 MG TABLET PO SCH (08:14)
[2020-11-25] MEDS: ASPIRIN 81 MG TABLET EC PO SCH (08:14)
[2020-11-25] MEDS: OMEPRAZOLE 20 MG CAPSULE.DR PO SCH (08:14)
[2020-11-25] MEDS: DOXYCYCLINE 100MG TABLET PO SCH (08:14)
[2020-11-25] MEDS: SODIUM CHLORIDE FLUSH 10ML SYR IVF SCH (08:15)
[2020-11-25] MEDS: POTASSIUM CHLORIDE 20 MEQ TAB.ER.PRT PO SCH (08:19)
[2020-11-25] MEDS: POLYETHYLENE GLYCOL 17 GM PACKET PO SCH (08:20)
[2020-11-25] MEDS: INSULIN LISPRO 100 UNITS/ML, PEN SQ-INSULIN SCH ×2 (08:22→11:00)
[2020-11-25] MEDS ORDERED: FURO-92 PO (10:31)
[2020-11-25] MEDS ORDERED: LOSA50TA2 PO (10:31)
[2020-11-25] MEDS ORDERED: GLIP5TAB10 PO (10:31)
[2020-11-25] MEDS ORDERED: METO25TA35 PO (10:31)
[2020-11-25] MEDS ORDERED: METF500T PO (10:31)
[2020-11-25] MEDS ORDERED: ATOR40TA78 PO (10:31)
[2020-11-25] MEDS ORDERED: ASPI81TA45 PO (10:31)
[2020-11-25] MEDS ORDERED: OXYC5TAB98 PO (10:31)
[2020-11-25] MEDS ORDERED: CLOP75TA PO (10:31)
[2020-11-25] MEDS ORDERED: ALPR0.254 PO (10:31)
[2020-11-25] MEDS ORDERED: POTA20TA6 PO (10:31)
[2020-11-25] MEDS ORDERED: METO2.5T PO (10:31)
[2020-11-25] MEDS ORDERED: AMIO200T42 PO (10:31)
[2020-11-25] MEDS ORDERED: DOXY100T PO (10:31)
== END 2020-11-25 12:02 | disposition home or self-care (01) | DRG 235 ==
LOC: 5SO 18:17 → CSU 11-17 11:12 → 5SO 11-20 14:24 → DCLOUNGE 11-25 11:53
PROVIDERS: ADMIT Family Medicine; ATTEND Internal Medicine
PROC: 02100Z9 Bypass Coronary Artery, One Artery from Left Internal Mammary, Open Approach (ICD-10-PCS; 2020-11-17)
PROC: 021109W Bypass Coronary Artery, Two Arteries from Aorta with Autologous Venous Tissue, Open Approach (ICD-10-PCS; 2020-11-17)
PROC: 06BP4ZZ Excision of Right Saphenous Vein, Percutaneous Endoscopic Approach (ICD-10-PCS; 2020-11-17)
PROC: 0BH17EZ Insertion of Endotracheal Airway into Trachea, Via Natural or Artificial Opening (ICD-10-PCS; 2020-11-17)
PROC: B245ZZ4 Ultrasonography of Left Heart, Transesophageal (ICD-10-PCS; 2020-11-17)
PROC: 5A1221Z Performance of Cardiac Output, Continuous (ICD-10-PCS; 2020-11-17)
PROC: 3E083GC Introduction of Other Therapeutic Substance into Heart, Percutaneous Approach (ICD-10-PCS; 2020-11-17)
PROC: 5A1935Z Respiratory Ventilation, Less than 24 Consecutive Hours (ICD-10-PCS; principal; 2020-11-17 11:15)
PROC: 04HY32Z Insertion of Monitoring Device into Lower Artery, Percutaneous Approach (ICD-10-PCS; 2020-11-18)
PROC: 0T9B30Z Drainage of Bladder with Drainage Device, Percutaneous Approach (ICD-10-PCS; 2020-11-21)
DX: I25.10 Atherosclerotic heart disease of native coronary artery without angina pectoris (principal); I50.43 Acute on chronic combined systolic (congestive) and diastolic (congestive) heart failure; J96.00 Acute respiratory failure, unspecified whether with hypoxia or hypercapnia; N17.0 Acute kidney failure with tubular necrosis; R57.0 Cardiogenic shock; I48.20 Chronic atrial fibrillation, unspecified; L03.113 Cellulitis of right upper limb; Z68.41 Body mass index [BMI] 40.0-44.9, adult; Z20.822 Contact with and (suspected) exposure to COVID-19; I25.5 Ischemic cardiomyopathy; I27.20 Pulmonary hypertension, unspecified; D64.9 Anemia, unspecified; D72.828 Other elevated white blood cell count; E11.65 Type 2 diabetes mellitus with hyperglycemia; E66.01 Morbid (severe) obesity due to excess calories; E78.5 Hyperlipidemia, unspecified; E87.5 Hyperkalemia; E88.09 Other disorders of plasma-protein metabolism, not elsewhere classified; D72.829 Elevated white blood cell count, unspecified; Z96.698 Presence of other orthopedic joint implants; F41.9 Anxiety disorder, unspecified; G47.00 Insomnia, unspecified; I11.0 Hypertensive heart disease with heart failure; Z86.61 Personal history of infections of the central nervous system; Z97.0 Presence of artificial eye; Z79.899 Other long term (current) drug therapy; Z79.891 Long term (current) use of opiate analgesic; Z79.01 Long term (current) use of anticoagulants
CPT/HCPCS: 32555; 36415; 36600; C8929; J3490; S0017; 71045; 71046; 80048; 80053; 81001; 81003; 82330; 82800; 82803; 82810; 82947; 82962; 83036; 83735; 83880; 84132; 84295; 85014; 85018; 85025; 85049; 85347; 85520; 85610; 85730; 86850; 86900; 86923; 87070; 87081; 87205; 87635; 88305; 93005; 93312; 93325; 93880; 93970; 94002; 94003; G0378; J0171; J0697; J1644; J1815; J1940; J2250; J2704; J2720; J3010; J3370; J3475; J3480; J7060; P9045; P9047; Q9957; C1751; C1760; J0282; J0780; J1250; J2150; J2270; J2370; J2440; J7040; J7050; P9017; P9035; Q0163